=== PATIENT | female | born 1940 | race Caucasian/White ===

== ENCOUNTER 2021-06-23 16:53 | Inpatient (IN) ==
[2021-06-23] MEDS: morphine 2 MG/ML VIAL IV PRN ×2 (17:16→17:50)
--- NOTE | 2021-06-23 17:47 | XRay Report ---
CLINICAL INFORMATION: 03/31/2020 COMPARISON: None. TECHNIQUE: Portable FINDINGS: The heart size, mediastinum and pulmonary vessels are unremarkable. The lung volumes are elevated is mild wall thickening the central bronchi compatible with chronic bronchitis. Minor scattered scarring in the lower lungs appreciated no infiltrates. There are no effusions. The bones and soft tissues are within normal limits. IMPRESSION: Chronic bronchitis. No acute disease Interpreted and Authenticated by: Braulio Mansfield 06/23/21
--- NOTE | 2021-06-23 17:48 | XRay Report ---
CLINICAL INFORMATION: Trauma COMPARISON: None. FINDINGS: Sacroiliac and hip joints show mild degenerative change. Basicervical fracture of the right hip is non-displaced. No angulation.. Soft tissues are unremarkable. IMPRESSION: Nondisplaced basicervical fracture-right hip Interpreted and Authenticated by: Braulio Mansfield 06/23/21
--- NOTE | 2021-06-23 18:03 | Emergency Department Note ---
HPI General Chief complaint: Extremity Injury, Lower Stated complaint: extremity injury Time Seen by Provider: 06/23/21 17:04 Mode of arrival: ambulatory Limitations: no limitations History of Present Illness HPI Narrative: Narrative: Patient is an 81-year-old female who presented with chief complaint of hip pain after a fall. Patient states she was out walking her dog this evening when she excellently got pulled off of balance, landing onto her right hip. She has been unable to get up and walk since then. She did not hit her head or lose consciousness, denies being on blood thinners. Otherwise denies any other complaints such as fever, headache, cough, neck pain, chest pain, shortness of breath, nausea, vomiting, abdominal pain, changes in bowel movements or urinary symptoms, numbness or tingling. Related Data Home Medications Medication Instructions Recorded Confirmed multivitamin PO 06/09/15 05/22/18 omega-3 fatty acids 1,000 mg 1,000 mg PO QDAY 06/09/15 05/22/18 capsule Previous Rx's Medication Instructions Recorded insulin syringe-needle U-100 1 mL #90 each 08/20/15 31 gauge x 12/13" insulin detemir U-100 100 unit/mL 10 unit (0.1 mL) SUB-Q QPM #10 ml 07/17/17 subcutaneous solution (Levemir U-100 Insulin) glipizide 10 mg tablet 10 mg PO BID #180 tab 03/27/18 labetalol 200 mg tablet 200 mg PO BID #180 tab 04/19/18 lisinopril 2.5 mg tablet 2.5 mg PO QDAY #14 tab 05/22/18 metformin 1,000 mg tablet 1,000 mg PO QDAY #90 tab 05/28/18 benazepril 40 mg tablet 40 mg PO QDAY #135 tab 05/31/18 Allergies Allergy/AdvReac Type Severity Reaction Status Date / Time atorvastatin [From Lipitor] AdvReac Other Verified 06/23/21 17:00 clonidine [From Catapres] AdvReac Other Verified 06/23/21 17:00 codeine AdvReac Other Verified 06/23/21 17:00 exenatide [From Byetta] AdvReac Other Verified 06/23/21 17:00 ezetimibe [From Zetia] AdvReac Other Verified 06/23/21 17:00 Review of Systems ROS ROS Narrative: Narrative: All systems ED: reviewed and negative except as stated. PFSH Narrative Patient History Narrative: Narrative: Medical/Surgical/Family History All Active Problems (Updated 06/23/21 @ 18:11 by Jorge Ewing DO) Closed hip fracture (Acute) Encounter for routine laboratory testing (Acute) Encounter for Health Maintenance Examination in Adult (Chronic) Hx of bilateral oophorectomy (Chronic) Hx of bilateral mastectomy (Chronic) History of lumpectomy of right breast (Chronic) Hx of lumbosacral spine surgery (Chronic 04/22/13) Hx of hysterectomy (Chronic) Hx of colonoscopy (Chronic 06/18/14) Hx of breast biopsy (Chronic 02/24/14) Previous back surgery (Chronic 05/06/13) Chronic rhinitis (Chronic) Osteopenia (Chronic) Mixed hyperlipidemia (Chronic) Low back pain (Chronic 06/18/13) Herpes simplex (Chronic 04/01/11) Essential hypertension (Chronic) Gout, unspecified (Chronic) Fatty liver disease, nonalcoholic (Chronic) DM w/o complication type II (Chronic) Depression (Chronic) Degenerative arthritis (Chronic) Confusion (Chronic) History of colonic polyps (Chronic 06/09/14) Breast cancer in situ (Chronic) Back pain (Chronic 04/24/12) Medical History (Updated 06/23/21 @ 18:11 by Jorge Ewing DO) Back pain (04/24/12) 04/24/2012 Low back pain, decreased mobility, and has regained weight. No radicular symptoms. Breast cancer in situ Original biopsy 1993. Right lumpectomy with neg node dissection. Estrogen receptor positive, had radiation therapy, on Tamoxifen X5 yrs. until 1998. Recurrent positive biopsy 07/2005 and elected for surgery 08/2005 bilateral mastectomy. Completed 5 year sequence of Femara in 08/2010. Dr. Gautam follows every 6 months. Chronic rhinitis Takes Claritin on a prn basis; no frequent infections. Confusion Extensive workup with Dr. Desai in 2007. Mild confusion and negative vascular review. Secondary to elevation in BP. Degenerative arthritis Multi-joint. Burstis in shoulder, metatarsalgia in left foot, and bilateral hip pain. Significant improvement with Celebrex. No H/O inflammatory joint issues. Mild discomfort in ROM of hips right more than left. No joint effusion. Extensive evaluation with abdominal CT and Pelvic MRI 12/2010. Depression Past H/O depression. Previously on Paxil in 2008. Doing well off medication. 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 Doing well with current medication. Eye exam stable (Dr. Browne). Negative vascular hx, no significant proteinuria, no hypoglycemia, and foot care excellent. Essential hypertension Home monitor. Generally well controlled by medication. Some mild edema but is stable. Negative cardiac history. Fatty liver disease, nonalcoholic Elevated SGOT; diagonisis steatohepatitis or fatty liver. Uses little to no alcohol; has been stable. Previous screening for hepatitis B, C and hemochromatosis. Gout, unspecified Right foot 2006 and left foot 2008. No H/O kidney stone. Herpes simplex (04/01/11) Diagnosed by Dr. Gautam. Reactivation associated w current emotional stressors. History of colonic polyps (06/09/14) 06/09/04--Dr. Turk--Colonoscopy revealed hyperplastic polyp. Consider rescreen late 2011. Negative family history, no H/O bleeding, and no dyspepsia, dysphagia, or chronic pain. Low back pain (06/18/13) post op x 2: 04/27/13,05/09/13 post op x 2: 04/27/13,05/09/13 Mixed hyperlipidemia Multiple medication intolerance; currently diet-treated. Osteopenia H/O. 08/2010 bone density T-score spine +0.5, hip -0.4; normal. Vitamin D was stable 08/2009 at 38.2. Surgical History (Updated 09/17/20 @ 10:56 by [employer] [place]) History of lumpectomy of right breast with a negative node dissection Hx of bilateral mastectomy 08/2005 - Completed 5-year sequence of Femara 08/2010. Followed q6 month through Dr. Gautam. Extensive re-evaluation 12/2010. Hx of bilateral oophorectomy 2006 - prophylactic bilateral oophorectomy 07/2006 due to breast history. Hx of breast biopsy (02/24/14) several previous breast biopsies Hx of colonoscopy (06/18/14) 06/18/14-TA Normal in 1992. 06/09/04 Colonoscopy--Dr. Turk--Hyperplastic polyp in 2003. Consider rescreen late 2011. Negative family history, no H/O bleeding, and no dyspepsia, dysphagia, or chronic pain. Hx of hysterectomy 1973 - in 2 sequential surgeries. Hx of lumbosacral spine surgery (04/22/13) anterior fusion L2-L3, L3-L4, L4-L5 with application of prosthetic device to interbody space at above levels. Previous back surgery (05/06/13) Revision segmental intrumentation l2 to the sacrum, removal of pedicle srew on the left and revision instrumentation to the iliac crests bilaterally by Dr. Gannon. Family History Mother Malignant neoplasm of breast Malignant neoplasm of lung Sister Malignant neoplasm of breast Unknown Hypertension Brother Carcinoma of pancreas Social History Smoking Status: Never smoker Alcohol Intake Frequency: holiday/special occasion only Substance Use: does not use Exam Narrative Narrative: Narrative: Patient is laying in bed, talking normally and appropriately. She does not appear to be in acute discomfort or distress, except for when she has to move her right lower extremity. General Limitations: no limitations Head Head: Present atraumatic and normocephalic Eye Eye: Present normal appearance, PERRL and EOMI; Absent scleral icterus or conjunctival injection ENT ENT: Present normal oropharynx and mucous membranes moist Neck Neck: Present full ROM and trachea midline; Absent tenderness or lymphadenopathy Chest Chest: Present symmetric chest wall rise Respiratory Respiratory: Present normal lung sounds bilaterally; Absent respiratory distress, rales/crackles, wheezes, stridor or accessory muscle use Cardiovascular Cardiovascular: Present regular rate and normal rhythm; Absent systolic murmur or diastolic murmur Adbominal Abdominal: Present soft; Absent tenderness, guarding, rebound, rigidity or mass Extremities Extremities: Absent pedal edema, pretibial edema or calf tenderness Expanded Lower Extremity Hip/Pelvis: Present tenderness, external rotation and pelvis stable; Absent full ROM, dislocation, erythema, internal rotation or shortening Back Back: Absent CVA tenderness (R), CVA tenderness (L) or spinous process tenderness Neurological Neurological: Present alert and oriented X3 Psychiatric Psychiatric: Present normal affect and normal mood Skin Skin: Present warm (WNL) and dry Course Vital Signs Vital signs: Vital Signs Temperature 97.9 F 06/23/21 16:54 Pulse Rate 72 06/23/21 16:54 Respiratory Rate 16 06/23/21 16:54 Blood Pressure 157/121 06/23/21 16:54 Pulse Oximetry (%) 100 06/23/21 16:54 Temperature 97.9 F 06/23/21 16:54 Pulse Rate 71 06/23/21 17:32 Respiratory Rate 16 06/23/21 17:28 Blood Pressure 191/72 06/23/21 17:32 Pulse Oximetry (%) 100 06/23/21 17:32 MDM MDM Narrative Medical decision making narrative: Narrative: Patient is an 81-year-old female presented with history and physical exam possible hip fracture. X-ray did confirm an intertrochanteric hip fracture with no significant displacement. No other significant traumatic injury to her head or neck concerning for TBI. Vital signs stable, pain under control. Discussed the case with Dr. Ramesh, who stated that he would evaluate the patient and potentially try to fix her tonight versus early tomorrow morning. I discussed case the hospitalist who agrees the plan of admission. Patient is agreeable to the plan at this time has no further concerns or questions Procedures Other Procedure: EKG shows normal sinus rhythm with rate of approximately 65. No ST elevation or depression concerning for ischemia. No other significant arrhythmia noted. Discharge Plan Patient/Caregiver Discharge Instructions Pt seen by [facility]/PA only: No Clinical Impression: Closed hip fracture Patient Disposition: Xfer As Inpt ([facility]) Follow up with: Jesus Foss MD [Primary Care Provider] - Prescriptions: No Action (DME) insulin syringe-needle U-100 1 mL 31 x 5/16" syringe See Dose Instructions .ROUTE .MEDSUPPLY Qty: 90 0RF Dose Instruction: As directed Rx Instructions: As directed once daily glipizide 10 mg tablet 10 mg PO BID Qty: 180 1RF labetalol 200 mg tablet 200 mg PO BID Qty: 180 1RF metformin 1,000 mg tablet 1,000 mg PO QDAY Qty: 90 1RF benazepril 40 mg tablet 40 mg PO QDAY Qty: 135 0RF Rx Instructions: Take one and one half tablets by mouth once daily omega-3 fatty acids 1,000 mg capsule 1,000 mg PO QDAY 0RF multivitamin PO 0RF lisinopril 2.5 mg tablet 2.5 mg PO QDAY Qty: 14 0RF insulin detemir U-100 [Levemir U-100 Insulin] 100 unit/mL solution 10 unit SUB-Q QPM Qty: 10 5RF Rx Instructions: administer with evening meal
[2021-06-23 18:11] LABS: POC Blood Urea Nitrogen 14 mg/dL (6-20); POC CO2 25 mmol/L (22-30); POC Calcium, Ionized 1.17 mmEq/L (1.16-1.32); POC Chloride 100 mEq/L (96-108); POC Creatinine 0.8 mg/dL (0.6-1.2); POC Glucose, Random 143 mg/dL (70-105); POC Hematocrit 45 % (36-48); POC Sodium 140 mEq/L (133-145)
[2021-06-23] MEDS ORDERED: TRANEXAMIC ACID 1,000 MG/10 ML VIAL IV ONE (18:18)
[2021-06-23] MEDS ORDERED: ceFAZolin 2 GM in DEXTROSE 5% IN WATER 50 ML IV SCH (18:30)
[2021-06-23 18:55] LABS: Basophils # (Auto) 0.05 K/mcL (0.00-0.30); Basophils % (Auto) 0.5 % (0.0-2.0); Eosinophils # (Auto) 0.07 K/mcL (0.00-0.70); Eosinophils % (Auto) 0.7 % (0.0-7.0); Hematocrit 43.1 % (34.1-44.9); Hemoglobin 14.9 g/dL (11.2-15.7); Lymphocytes # (Auto) 2.51 K/mcL (1.50-4.80); Lymphocytes % (Auto) 24.6 % (15.5-49.0); Mean Cell Volume 91.5 fL (80.0-100.0); Mean Corpuscular HGB Conc 34.6 g/dL (31.0-36.0); Mean Platelet Volume 11.2 fL (7.4-10.4); Monocytes # (Auto) 0.71 K/mcL (0.10-0.90); Neutrophils % (Auto) 67.2 % (38.0-78.0); Platelet Count 239 K/mcL (140-440); RBC 4.71 M/mcL (3.59-5.38); Red Cell Distribution Width 12.4 % (11.5-14.5); WBC 10.2 K/mcL (4.5-11.0)
[2021-06-23] MEDS ORDERED: ceFAZolin 1 GM VIAL ONE (19:07)
--- NOTE | 2021-06-23 19:18 | Consultation ---
DATE OF CONSULTATION: 06/23/2021 REASON FOR CONSULTATION: Right hip fracture. CONSULTING PROVIDER: Dr. Patel, ER provider, [facility]. HISTORY OF PRESENT ILLNESS: The patient is an 79-year-old female who this evening was planning to walk her dog when her dog caused her to fall onto her right hip. She had immediate pain, inability to ambulate, was brought to the Emergency Department for further evaluation and treatment. She does not complain of any other pain. On presentation, she denies any loss of consciousness or hitting her head. She denies any numbness, tingling to the extremity itself. PAST MEDICAL HISTORY: Significant for insulin-dependent diabetes; hypertension; controlled on 3 blood pressure medications; and hyperlipidemia. ALLERGIES: ATORVASTATIN, KLONOPIN, CODEINE, EXENATIDE, EZETIMIBE OR ZETIA. MEDICATIONS: Multivitamin, omega 3 fatty acids, insulin, glipizide, labetalol, lisinopril, metformin, benazepril. SOCIAL HISTORY: She resides by herself here locally with family in [facility]. Denies tobacco use. SURGICAL HISTORY: She has had multiple surgeries in the past includes mastectomy for history of breast cancer. She has had a spinal fusion. REVIEW OF SYSTEMS: A 10-point review of systems otherwise negative. PHYSICAL EXAMINATION: GENERAL: The patient is alert, oriented, interactive, appropriate. VITAL SIGNS: She is afebrile with temperature of 97.9, heart rate in the 70s, blood pressure over 150s/121 with more recently 190s/70s, saturating 99%-100% on room air. EXTREMITIES: Examination of bilateral upper extremities reveals is atraumatic. She has full active range of motion. No obvious deformity. Hands are warm and well perfused and sensation to be intact. Left lower extremity has no pain with log roll of her hip. No obvious deformity, no knee joint effusion. No deformity noted. She has full active range of motion without difficulty. The right lower extremity range of motion for about the hip given known fracture, she has no tenderness about the knee itself. No joint effusion. No obvious deformity noted. Skin is intact throughout. Her foot is warm and well perfused. Sensation intact to light touch. IMAGING: She has plain radiographs demonstrating intertrochanteric or basicervical femoral neck fracture on the right side. LABS: She has a chemistry with a glucose of 143. Hematocrit of 45, creatinine 0.8. Sodium 140 and potassium 9 with a CBC that is pending. COVID testing is pending. ASSESSMENT AND PLAN: This is an 81-year-old diabetic female with hypertension, history of breast cancer with a right basicervical femur fracture. I discussed this with her at length. I discussed treatment options. I do recommend operative treatment as this will improve her overall function as well as improve her pain control and restore her mobility much faster. I discussed about the risks and benefits as well as the surgery itself. I discussed postoperative expectations and recovery process. They do wish to proceed. Plan will be for operative fixation of right hip fracture with an cephalomedullary implant. DLW:jey Job ID: [id number] Doc ID: [id number] Miranda Ramesh MD MTDD
[2021-06-23] MEDS ORDERED: BENZOCAINE/MENTHOL 1 LOZENGE PO PRN (19:31)
[2021-06-23] MEDS ORDERED: ONDANSETRON 4 MG/2 ML VIAL IV PRN ×2 (19:31→21:51)
[2021-06-23] MEDS ORDERED: LACTATED RINGERS 250 ML IV PRN (19:31)
[2021-06-23] MEDS ORDERED: NALOXONE HCL 0.4 MG/ML VIAL IV PRN (19:31)
[2021-06-23] MEDS ORDERED: METHOCARBAMOL 1,000 MG/10 ML VIAL IV PRN (19:31)
[2021-06-23] MEDS ORDERED: LABETALOL 5 MG/ML ML IV PRN (19:31)
[2021-06-23] MEDS ORDERED: fentaNYL 100 MCG/2 ML VIAL IV PRN (19:31)
[2021-06-23] MEDS ORDERED: MEPERIDINE 25 MG/ML VIAL IV PRN (19:31)
[2021-06-23] MEDS ORDERED: ACETAMINOPHEN 1,000 MG/100 ML BAG IV ONE (19:31)
[2021-06-23] MEDS ORDERED: FLUMAZENIL 0.1 MG/ML ML IV PRN (19:31)
[2021-06-23] MEDS ORDERED: IPRATROPIUM/ALBUTEROL 3 ML AMPUL.NEB NEB PRN (19:31)
[2021-06-23] MEDS ORDERED: METOPROLOL TARTRATE 5 MG/5 ML VIAL IV PRN ×2 (19:31→21:51)
[2021-06-23] MEDS ORDERED: LIDOCAINE HCL/PF 100 MG/5 ML SYRINGE IV ONE (19:40)
[2021-06-23] MEDS ORDERED: PHENYLephrine 1 MG/10 ML SYRINGE (ANEST) ONE (19:40)
[2021-06-23] MEDS ORDERED: PROPOFOL 200 MG/20 ML VIAL IV ONE (19:40)
[2021-06-23] MEDS ORDERED: GLYCOPYRROLATE 0.2 MG/ML VIAL IV ONE (19:40)
[2021-06-23] MEDS ORDERED: ONDANSETRON 4 MG/2 ML VIAL ONE (19:40)
[2021-06-23] MEDS ORDERED: KETAMINE 50 MG/ML Syringe (ANEST) IV ONE (19:40)
[2021-06-23] MEDS ORDERED: ePHEDrine 50 MG/5 ML SYRINGE (ANEST) IV ONE (19:40)
[2021-06-23] MEDS ORDERED: TRANEXAMIC ACID 1,000 MG/10 ML VIAL ONE (19:40)
[2021-06-23] MEDS ORDERED: MAGNESIUM SULFATE 2 GM/50 ML BAG IV ONE (19:40)
[2021-06-23] MEDS ORDERED: DEXAMETHASONE 10 MG/ML VIAL ONE (19:40)
[2021-06-23] MEDS ORDERED: fentaNYL 250 MCG/5 ML VIAL IV ONE (19:40)
[2021-06-23] MEDS ORDERED: LACTATED RINGERS 1,000 ML IV SCH (19:45)
--- NOTE | 2021-06-23 20:53 | Brief Operative Note ---
Brief Operative Note Date of procedure: 06/23/21 Pre-op diagnosis: right basicervical femoral neck fracture Post-op diagnosis: same Procedure: operative fixation with intra medudullary device Grafts/Implants: Yes Anesthesia: GETA Findings: femoral neck fracture Complications: none Surgeon: Miranda Ramesh Estimated blood loss (cc): 150 Tourniquet Time (Minutes): 0 Specimens Removed/Pathology: none sent Condition: stable Disposition: PACU
[2021-06-23] MEDS ORDERED: oxyCODONE/APAP 5/325MG TABLET PO PRN (21:05)
[2021-06-23] MEDS ORDERED: METHOCARBAMOL 500 MG TABLET PO PRN (21:17)
[2021-06-23] MEDS ORDERED: ONDANSETRON 4 MG ODT TABLET SL PRN (21:51)
[2021-06-23] MEDS ORDERED: MAGNESIUM SULFATE 2 GM/50 ML BAG IV PRN (21:51)
[2021-06-23] MEDS ORDERED: POLYETHYLENE GLYCOL 3350 17 GM PACKET PO PRN (21:51)
[2021-06-23] MEDS ORDERED: 0.9 % SODIUM CHLORIDE 1,000 ML IV SCH (21:51)
[2021-06-23] MEDS ORDERED: DEXTROSE 31 GM ORAL.SUSP PO PRN (21:51)
[2021-06-23] MEDS ORDERED: ACETAMINOPHEN 325 MG TABLET PO PRN (21:51)
[2021-06-23] MEDS ORDERED: POTASSIUM CHLORIDE 40 MEQ in DEXTROSE 5% IN WATER 500 ML IV PRN (21:51)
[2021-06-23] MEDS ORDERED: DEXTROSE 50% 50 ML VIAL IV PRN (21:51)
[2021-06-23] MEDS ORDERED: hydrALAZINE 20 MG/ML VIAL IV PRN (21:51)
[2021-06-23] MEDS ORDERED: POTASSIUM CHLORIDE 20 MEQ PACKET PO PRN (21:51)
[2021-06-23] MEDS ORDERED: HYDROmorphone 0.5 MG/0.5 ML SYRINGE IV PRN (21:51)
[2021-06-23] MEDS ORDERED: MELATONIN 3 MG TABLET PO PRN (21:51)
[2021-06-23] MEDS ORDERED: ACETAMINOPHEN 650 MG/65 ML BAG IV PRN (21:51)
--- NOTE | 2021-06-23 21:55 | Internal Med History&Physical ---
HPI History of Present Illness Patient information: Note initiated : 06/23/21 at 9:51 pm Service Date, if different from initiated Date: [] Patient: Mary Biswas a 81 y/o F admitted on 06/23/21 for extremity injury. Chief Complaint: [] History of present illness: Ms Biswas is a 81 year old F with a history of DM type II/hypertension who fell this evening while walking her dog when she got accidentally pulled and landed on the ground. She immediately felt pain. She was brought into the ER for evaluation. Initial work-up was consistent with right hip fracture. Dr. Ramesh was consulted and patient was taken to surgery from the ER. Postoperatively hospitalist service was consulted for management while patient will undergo postoperative care as per Ortho recommendations. of medical issues including hypertension/diabetes I was a evaluate patient in the PACU. Patient to is immediately postop under effect of sedation/anesthesia. Intraoperatively patient maintained MAP She was able to answer some of the question. she does not appear to be distressed. She maintained good map intraoperatively. She is currently on room air. Family members are present. Most of the history was obtained from review of medical record/family members. No precipitating events including lightheadedness dizziness. Patient has a good functional baseline lives a However daughter wants her to return home and stay with her after discharge from hospital. She denies recent hospitalization, pneumonia, chronic renal disease, recent CVA or MIs. Review systems a 10 point review system was performed and is negative except for ones discussed above PFSH PFSH All Active Problems (Updated 06/24/21 @ 08:03 by Miranda Ramesh MD) Closed hip fracture (Acute) Encounter for routine laboratory testing (Acute) Encounter for Health Maintenance Examination in Adult (Chronic) Hx of bilateral oophorectomy (Chronic) Hx of bilateral mastectomy (Chronic) History of lumpectomy of right breast (Chronic) Hx of lumbosacral spine surgery (Chronic 04/22/13) Hx of hysterectomy (Chronic) Hx of colonoscopy (Chronic 06/18/14) Hx of breast biopsy (Chronic 02/24/14) Previous back surgery (Chronic 05/06/13) Chronic rhinitis (Chronic) Osteopenia (Chronic) Mixed hyperlipidemia (Chronic) Low back pain (Chronic 06/18/13) Herpes simplex (Chronic 04/01/11) Essential hypertension (Chronic) Gout, unspecified (Chronic) Fatty liver disease, nonalcoholic (Chronic) DM w/o complication type II (Chronic) Depression (Chronic) Degenerative arthritis (Chronic) Confusion (Chronic) History of colonic polyps (Chronic 06/09/14) Breast cancer in situ (Chronic) Back pain (Chronic 04/24/12) Medical History (Updated 06/24/21 @ 08:03 by Miranda Ramesh MD) Back pain (04/24/12) 04/24/2012 Low back pain, decreased mobility, and has regained weight. No radicular symptoms. Breast cancer in situ Original biopsy 1993. Right lumpectomy with neg node dissection. Estrogen receptor positive, had radiation therapy, on Tamoxifen X5 yrs. until 1998. Recurrent positive biopsy 07/2005 and elected for surgery 08/2005 bilateral mastectomy. Completed 5 year sequence of Femara in 08/2010. Dr. Gautam follows every 6 months. Chronic rhinitis Takes Claritin on a prn basis; no frequent infections. Confusion Extensive workup with Dr. Desai in 2007. Mild confusion and negative vascular review. Secondary to elevation in BP. Degenerative arthritis Multi-joint. Burstis in shoulder, metatarsalgia in left foot, and bilateral hip pain. Significant improvement with Celebrex. No H/O inflammatory joint issues. Mild discomfort in ROM of hips right more than left. No joint effusion. Extensive evaluation with abdominal CT and Pelvic MRI 12/2010. Depression Past H/O depression. Previously on Paxil in 2008. Doing well off medication. 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 Doing well with current medication. Eye exam stable (Dr. Browne). Negative vascular hx, no significant proteinuria, no hypoglycemia, and foot care excellent. Essential hypertension Home monitor. Generally well controlled by medication. Some mild edema but is stable. Negative cardiac history. Fatty liver disease, nonalcoholic Elevated SGOT; diagonisis steatohepatitis or fatty liver. Uses little to no alcohol; has been stable. Previous screening for hepatitis B, C and hemochromatosis. Gout, unspecified Right foot 2006 and left foot 2008. No H/O kidney stone. Herpes simplex (04/01/11) Diagnosed by Dr. Gautam. Reactivation associated w current emotional stressors. History of colonic polyps (06/09/14) 06/09/04--Dr. Turk--Colonoscopy revealed hyperplastic polyp. Consider resc reen late 2011. Negative family history, no H/O bleeding, and no dyspepsia, dysphagia, or chronic pain. Low back pain (06/18/13) post op x 2: 04/27/13,05/09/13 post op x 2: 04/27/13,05/09/13 Mixed hyperlipidemia Multiple medication intolerance; currently diet-treated. Osteopenia H/O. 08/2010 bone density T-score spine +0.5, hip -0.4; normal. Vitamin D was stable 08/2009 at 38.2. Surgical History (Updated 09/17/20 @ 10:56 by [employer] [facility]) History of lumpectomy of right breast with a negative node dissection Hx of bilateral mastectomy 08/2005 - Completed 5-year sequence of Femara 08/2010. Followed q6 month through Dr. Gautam. Extensive re-evaluation 12/2010. Hx of bilateral oophorectomy 2006 - prophylactic bilateral oophorectomy 07/2006 due to breast history. Hx of breast biopsy (02/24/14) several previous breast biopsies Hx of colonoscopy (06/18/14) 06/18/14-TA Normal in 1992. 06/09/04 Colonoscopy--Dr. Turk--Hyperplastic polyp in 2003. Consider rescreen late 2011. Negative family history, no H/O bleeding, and no dyspepsia, dysphagia, or chronic pain. Hx of hysterectomy 1972 - in 2 sequential surgeries. Hx of lumbosacral spine surgery (04/22/13) anterior fusion L2-L3, L3-L4, L4-L5 with application of prosthetic device to interbody space at above levels. Previous back surgery (05/06/13) Revision segmental intrumentation l2 to the sacrum, removal of pedicle srew on the left and revision instrumentation to the iliac crests bilaterally by Dr. Gannon. Family History Mother Malignant neoplasm of breast Malignant neoplasm of lung Sister Malignant neoplasm of breast Unknown Hypertension Brother Carcinoma of pancreas Social History (Updated 05/22/18 @ 13:26 by Claudia Del Valle MD) household members: spouse housing: house lives independently: Yes marital status: occupational status: retired occupation: [employer] alcohol intake frequency: holiday/special occasion only substance use type: does not use MEDS/ALLERGIES Home Medications and Allergies Home Medications Medication Instructions Recorded Confirmed Type multivitamin PO 06/09/15 05/22/18 History omega-3 fatty acids 1,000 mg 1,000 mg PO QDAY 06/09/15 05/22/18 History capsule insulin syringe-needle U-100 1 mL #90 each 08/20/15 05/22/18 Rx 31 gauge x /16" insulin detemir U-100 100 unit/mL 10 unit (0.1 mL) SUB-Q QPM #10 ml 07/17/17 05/22/18 Rx subcutaneous solution (Levemir U-100 Insulin) glipizide 10 mg tablet 10 mg PO BID #180 tab 03/27/18 05/22/18 Rx labetalol 200 mg tablet 200 mg PO BID #180 tab 04/19/18 05/22/18 Rx lisinopril 2.5 mg tablet 2.5 mg PO QDAY #14 tab 05/22/18 05/22/18 Rx metformin 1,000 mg tablet 1,000 mg PO QDAY #90 tab 05/28/18 Rx benazepril 40 mg tablet 40 mg PO QDAY #135 tab 05/31/18 Rx acetaminophen 500 mg tablet 1,000 mg PO Q8 #90 tab 06/24/21 Rx apixaban 5 mg tablet (Eliquis) 2.5 mg PO BID #66 tab 06/24/21 Rx docusate sodium 100 mg capsule 100 mg PO BID #60 cap 06/24/21 Rx methocarbamol 500 mg tablet 500 mg PO Q6HP PRN #20 tab 06/24/21 Rx oxycodone 5 mg tablet 5 - 10 mg PO Q4-6HP PRN #50 tab 06/24/21 Rx Allergies Allergy/AdvReac Type Severity Reaction Status Date / Time atorvastatin [From Lipitor] AdvReac Other Verified 06/23/21 17:00 clonidine [From Catapres] AdvReac Other Verified 06/23/21 17:00 codeine AdvReac Other Verified 06/23/21 17:00 exenatide [From Byetta] AdvReac Other Verified 06/23/21 17:00 ezetimibe [From Zetia] AdvReac Other Verified 06/23/21 17:00 EXAM Constitutional Vitals: Temp Pulse Resp BP Pulse Ox 97.9 F 96 H 30 H 193/80 100 06/23/21 16:54 06/23/21 21:39 06/23/21 21:39 06/23/21 21:35 06/23/21 21:39 Sedated resting comfortably Head normocephalic Oral cavity moist No ear or nose discharge Eye no subconjunctival pallor, movement symmetrical S1-S2 regular ESM grade 1 Nonlabored breathing Nondistended nontender abdomen Lower extremity postoperative dressing right hip, no cyanosis clubbing or joint swelling Skin no suspicious lesion Psych under effect of anesthesia no agitation Neuro Limited neuro exam DATA Data Completed and Pending Labs: Labs from last 24 hours 06/23/21 06/23/21 18:02 18:02 WBC 10.2 RBC 4.71 Hgb 14.9 Hct 43.1 POC Hct 45 MCV 91.5 MCH 31.6 MCHC 34.6 RDW 12.4 Plt Count 239 MPV 11.2 H Neut % (Auto) 67.2 Lymph % (Auto) 24.6 [place] % (Auto) 7.0 Eos % (Auto) 0.7 Baso % (Auto) 0.5 Lymph # (Auto) 2.51 [place] # (Auto) 0.71 Eos # (Auto) 0.07 Baso # (Auto) 0.05 Absolute Neutrophils 6.85 POC Sodium 140 POC Potassium 3.0 L POC Chloride 100 POC Total CO2 25 POC BUN 14 POC Creatinine 0.8 POC Glucose 143 H POC WB Ioniz Calcium 1.17 A/P Narrative A/P Narrative: * Right hip fractur status post operative intervention. Case discussed with orthopedics. Patient tolerated surgery well. * pain management continue IV opioids/acetaminophen * Poorly controlled hypertension continue labetalol/ARB/as needed hydralazine * DM type II continue basal prandial insulin * DVT prophylaxis started on apixaban per orthopedics plan * inpatient admission * postoperative care as per orthopedics * pain management * pre-existing medical condition management home home medications * PT OT/nutrition support * discharge planning per case management Time Spent With Patient Time: Total time spent is greater than 50% in coordination of care (as documented) at patient's floor/unit and/or counseling patient:
[2021-06-23] MEDS ORDERED: 0.9 % SODIUM CHLORIDE 10 ML SYRINGE IV SCH (22:00)
[2021-06-23] MEDS: LACTATED RINGERS 1,000 ML IV SCH (22:14)
[2021-06-23] MEDS: INSULIN LISPRO 1 UNIT/0.01 ML UNIT SQ SCH (22:58)
[2021-06-23] MEDS: SENNOSIDES/DOCUSATE SODIUM 1 TAB TABLET PO SCH (22:59)
[2021-06-23] MEDS: DOCUSATE SODIUM 100 MG CAPSULE PO SCH (22:59)
[2021-06-23] MEDS: 0.9 % SODIUM CHLORIDE 10 ML SYRINGE IV SCH (23:02)
--- NOTE | 2021-06-24 03:03 | XRay Report ---
CLINICAL INFORMATION: Follow-up right hip fracture COMPARISON: Preoperative films 06/23/2021. FINDINGS: Sacroiliac and hip joints are normal in width and alignment without arthritic change. Right basicervical fracture is reduced anatomic alignment transfixed by gamma nail. Soft tissue swelling seen as expected IMPRESSION: ORIF right hip basicervical fracture Interpreted and Authenticated by: Braulio Mansfield 06/24/21
--- NOTE | 2021-06-24 03:09 | XRay Report ---
CLINICAL INFORMATION: Basicervical fracture right hip COMPARISON: Preoperative films 06/23/2021. FINDINGS: Digital images from the OR show reduction of the basicervical fracture to anatomic alignment. Final film shows gamma nail transfixing the fracture. Total fluoroscopy time 0.8 minutes IMPRESSION: ORIF right hip basicervical fracture anatomic alignment. Total fluoroscopy time 0.8 minutes Interpreted and Authenticated by: Braulio Mansfield 06/24/21
[2021-06-24] MEDS: 0.9 % SODIUM CHLORIDE 10 ML SYRINGE IV SCH ×3 (05:13→20:48)
[2021-06-24] MEDS: ceFAZolin 1 GM VIAL IV SCH ×2 (05:13→11:28)
[2021-06-24 06:56] LABS: Basophils # (Auto) 0.01 K/mcL (0.00-0.30); Basophils % (Auto) 0.1 % (0.0-2.0); Eosinophils # (Auto) 0 K/mcL (0.00-0.70); Eosinophils % (Auto) 0 % (0.0-7.0); Hematocrit 39.9 % (34.1-44.9); Hemoglobin 13.8 g/dL (11.2-15.7); Lymphocytes # (Auto) 0.67 K/mcL (1.50-4.80); Lymphocytes % (Auto) 6.6 % (15.5-49.0); Mean Cell Volume 91.5 fL (80.0-100.0); Mean Corpuscular HGB Conc 34.6 g/dL (31.0-36.0); Mean Platelet Volume 11.2 fL (7.4-10.4); Monocytes # (Auto) 0.21 K/mcL (0.10-0.90); Monocytes % (Auto) 2.1 % (1.0-12.0); Neutrophils % (Auto) 91.2 % (38.0-78.0); Platelet Count 219 K/mcL (140-440); RBC 4.36 M/mcL (3.59-5.38); Red Cell Distribution Width 12.5 % (11.5-14.5); WBC 10.1 K/mcL (4.5-11.0)
[2021-06-24] MEDS: INSULIN LISPRO 1 UNIT/0.01 ML UNIT SQ SCH ×4 (07:28→20:46)
[2021-06-24 07:37] LABS: ALT/SGPT 13 U/L (<40); AST/SGOT 43 U/L (<32); Albumin/Globulin Ratio 1.6 (1.0-2.3); Alkaline Phosphatase 69 U/L (39-117); Bilirubin,Direct < 0.2 mg/dL (0-0.3); Bilirubin,Total 0.7 mg/dL (0.1-1.0); Blood Urea Nitrogen 12 mg/dL (8-23); Calcium 9.3 mg/dL (8.6-10.4); Carbon Dioxide 24 mmol/L (22-30); Chloride 98 mmol/L (96-108); Globulin 2.5 gm/dL (2.2-3.7); Glomerular Filtration Rate 52; Glucose 217 mg/dL (70-105); Lactate Dehydrogenase 251 U/L (135-225); Phosphorous 4.2 mg/dL (2.5-4.5); Triglycerides 84 mg/dL (<150); Uric Acid 5.1 mg/dL (2.5-8.0)
[2021-06-24] MEDS ORDERED: oxyCODONE HCL 5 MG TABLET PO PRN (07:47)
--- NOTE | 2021-06-24 08:06 | Orthopedic Progress Note ---
SUBJECTIVE Subjective Patient information: Note initiated : 06/24/21 at 8:02 am Service Date, if different from initiated Date: [] Patient: Mary Biswas 81 y/o F admitted on 06/23/21 for extremity injury. Chief Complaint: [Doing well this AM. Pain controlled. Straight cath overnight. No chest pain, shortness breath.] Constitutional Vitals: Vital Signs Temp Pulse Resp BP Pulse Ox 97.8 F 75 16 154/70 100 06/24/21 07:00 06/24/21 07:00 06/24/21 07:00 06/24/21 07:00 06/24/21 07:00 Period Temp Pulse Resp BP Sys/Massey Pulse Ox Last 24 Hr 97.0 F-97.9 F 60-99 9-30 145-196/61-121 94-100 Intake and Output 06/23/21 06/24/21 06/24/21 21:59 05:59 13:59 Intake Total 150 Output Total 0 1250 Balance 150 -1250 Weight 165 lb 147 lb 12.8 oz Intake & Output: Intake & Output 06/23/21 06/24/21 06/24/21 21:59 05:59 13:59 Intake Total 150 Output Total 0 1250 Balance 150 -1250 Weight 165 lb 147 lb 12.8 oz Intake: IV 150 Ancef 2 gm In Dextrose 5% in 50 Water 50 ml @ 100 mls/hr IV PREOP SMITHA Rx#:[id number] Output: Urine Catheter Amount 1250 Void Amount 0 0 Other: Urine Appearance Clear Clear Straight Clear Clear Urine Color Bright Yellow Straw Straight Bright Yellow Straw Urine Odor Normal # Bowel Movements 0 Additional findings Additional findings: General: alert and oriented, appropriate Right hip: dressing clean dry intact. foot warm well perfused. OBJ DATA Labs CBC & Chem 7: 06/24/21 05:29 06/24/21 05:29 Labs: Abnormal Lab Results 06/24/21 06/24/21 06/23/21 05:29 05:29 18:02 MPV 11.2 H Neut % (Auto) 91.2 H Lymph % (Auto) 6.6 L Lymph # (Auto) 0.67 L Absolute Neutrophils 9.20 H POC Potassium 3.0 L Anion Gap 18.0 H Glucose 217 H POC Glucose 143 H AST 43 H Lactate Dehydrogenase 251 H 06/23/21 18:02 MPV 11.2 H Neut % (Auto) Lymph % (Auto) Lymph # (Auto) Absolute Neutrophils POC Potassium Anion Gap Glucose POC Glucose AST Lactate Dehydrogenase Meds: Medications Acetaminophen (Acetaminophen 500 Mg Tablet) 1,000 mg PO Q8 [facility]; Protocol Apixaban (Apixaban 5 Mg Tablet) 2.5 mg PO BID [facility] Cefazolin Sodium (Cefazolin 1 Gm Vial) 2 gm IV Q8H [facility] Stop: 06/24/21 11:01 Last Admin: 06/24/21 05:13 Dose: 2 gm Documented by: Dextrose (Dextrose 50% 50 Ml Vial) 0 ml IV UD PRN PRN Reason: Hypoglycemia Diagnostic Test (Pha) (Accu-Chek 1 Each Strip) 1 each FS [facility] Last Admin: 06/24/21 07:28 Dose: 1 each Documented by: Docusate Sodium (Docusate Sodium 100 Mg Capsule) 100 mg PO BID [facility] Last Admin: 06/23/21 22:59 Dose: Not Given Documented by: Glucose (Dextrose 31 Gm Oral.Susp) 15 gm PO PRN PRN PRN Reason: Hypoglycemia Hydralazine HCl (Hydralazine 20 Mg/Ml Vial) 10 mg IV Q4-6HP PRN PRN Reason: Hypertension Lactated Ringer's (Lactated Ringers) 1,000 mls @ 75 mls/hr IV .[id number] [facility] Last Admin: 06/23/21 22:14 Dose: 75 mls/hr Documented by: Potassium Chloride 40 meq/ (Dextrose) 520 mls @ 130 mls/hr IV UD PRN PRN Reason: K+ = or < 3.5 Magnesium Sulfate (Magnesium Sulfate) 2 gm in 50 mls @ 50 mls/hr IV UD PRN PRN Reason: MG = or < 1.7 Sodium Chloride (Sodium Chloride 0.9%) 1,000 mls @ 50 mls/hr IV .Q20H [facility] Stop: 06/26/21 09:50 Last Admin: 06/23/21 23:01 Dose: Not Given Documented by: Insulin Human Lispro (Insulin Lispro 1 Unit/0.01 Ml Unit) 0 unit SQ [facility]; Protocol Last Admin: 06/24/21 07:28 Dose: 2 units Documented by: Iron Carb/Multivit/Drink Mixer/Folic Acid (Multivit,Ther Iron,Ca,Fa & Min 1 Tablet) 1 tab PO DAILY [facility] Labetalol HCl (Labetalol 100 Mg Tablet) 200 mg PO BID SMITHA Lisinopril (Lisinopril 20 Mg Tablet) 20 mg PO HS [facility] Melatonin (Melatonin 3 Mg Tablet) 3 mg PO HSP PRN PRN Reason: Insomnia Methocarbamol (Methocarbamol 500 Mg Tablet) 500 mg PO Q6HP PRN PRN Reason: Muscle Spasm Metoprolol Tartrate (Metoprolol Tartrate 5 Mg/5 Ml Vial) 5 mg IV Q5M PRN PRN Reason: Heart Rate > 140 bpm Ondansetron HCl (Ondansetron 4 Mg Odt Tablet) 4 mg SL Q4-6HP PRN; Protocol PRN Reason: Nausea And Vomiting Ondansetron HCl (Ondansetron 4 Mg/2 Ml Vial) 4 mg IV Q4-6HP PRN; Protocol PRN Reason: Nausea And Vomiting Oxycodone HCl (Oxycodone Hcl 5 Mg Tablet) 5 - 10 mg PO Q4-6HP PRN; Protocol PRN Reason: Per Pain Protocol Polyethylene Glycol (Polyethylene Glycol 3350 17 Gm Packet) 17 gm PO DAILYP PRN PRN Reason: Constipation Potassium Chloride (Potassium Chloride 20 Meq Packet) 40 meq PO DAILYP PRN PRN Reason: K+ < 3.5 Senna/Docusate Sodium (Sennosides/Docusate Sodium 1 Tab Tablet) 1 tab PO HS [facility] Last Admin: 06/23/21 22:59 Dose: Not Given Documented by: Sitagliptin Phosphate (Sitagliptin 100 Mg Tablet) 100 mg PO DAILY [facility] Sodium Chloride (0.9 % Sodium Chloride 10 Ml Syringe) 10 ml IV Q8 [facility] Last Admin: 06/24/21 05:13 Dose: Not Given Documented by: A/P Assessment and plan (1) Closed hip fracture: Assessment and plan: POD 1 s/p operative fixation of right hip fracture -- weight bearing as tolerated. PT/OT this AM -- no range of motion restritions -- oral pain meds -- diabetic diet -- Prophy: IS, foot pumps, eliquis starting today, mobilization -- Dispo: pending on how she does with therapy but does want to go home. Will order walker, toilet seat riser, therapy consult, will need f/u with ortho in 10-14 days, keep dressing in place until follow up- ok to shower with it in place. prescriptions in chart. Status: Acute Time Spent With Patient Time: Total time spent is greater than 50% in coordination of care (as documented) at patient's floor/unit and/or counseling patient:
[2021-06-24] MEDS: sitaGLIPtin 100 MG TABLET PO SCH (09:15)
[2021-06-24] MEDS: LABETALOL 100 MG TABLET PO SCH ×2 (09:15→20:47)
[2021-06-24] MEDS: MULTIVIT,THER IRON,CA,FA & MIN 1 TABLET PO SCH (09:15)
[2021-06-24] MEDS: DOCUSATE SODIUM 100 MG CAPSULE PO SCH ×2 (09:15→20:47)
[2021-06-24] MEDS: APIXABAN 5 MG TABLET PO SCH ×2 (09:15→20:47)
[2021-06-24] MEDS: LACTATED RINGERS 1,000 ML IV SCH (09:16)
--- NOTE | 2021-06-24 12:19 | Internal Med Progress Note ---
SUBJECTIVE Subjective Patient information: Note initiated : 06/24/21 at 12:15 pm Service Date, if different from initiated Date: [] Patient: Mary Biswas 81 y/o F admitted on 06/23/21 for extremity injury. Chief Complaint: [] Interval history: Ms Biswas is a 81 year old F with a history of DM type II/hypertension who fell this evening while walking her dog when she got accidentally pulled and landed on the ground. She immediately felt pain. She was brought into the ER for evaluation. Initial work-up was consistent with right hip fracture. Dr. Ramesh was consulted and patient was taken to surgery from the ER. Postoperatively hospitalist service was consulted for management while patient will undergo postoperative care as per Ortho recommendations. of medical issues including hypertension/diabetes I was a evaluate patient in the PACU. Patient to is immediately postop under effect of sedation/anesthesia. Intraoperatively patient maintained MAP She was able to answer some of the question. she does not appear to be distressed. She maintained good map intraoperatively. She is currently on room air. Family members are present. Most of the history was obtained from review of medical record/family members. No pre cipitating events including lightheadedness dizziness experienced prior to fall Patient has a good functional baseline lives alone however daughter wants her to return home and stay with her for a few days following discharge from hospital. She denies recent hospitalization, pneumonia, chronic renal disease, recent CVA or MIs. 06/24-patient seen in room along with her daughter. In good spirits. Doing well. No significant postop pain. Was able to get out of bed and walk few steps. Ongoing physical therapy. Tolerating diet. No significant postoperative concerns. Stable labs and hemodynamics. Potassium improved to 3.5 from 3 with replacement. Systolic stable Constitutional Vitals: Vital Signs Temp Pulse Resp BP Pulse Ox 97.8 F 75 16 154/70 100 06/24/21 09:00 06/24/21 09:00 06/24/21 09:00 06/24/21 09:00 06/24/21 09:00 Period Temp Pulse Resp BP Sys/Massey Pulse Ox Last 24 Hr 97.0 F-97.9 F 60-99 9-30 145-196/61-121 94-100 Intake and Output 11/24/21 11/25/21 11/25/21 21:59 05:59 13:59 Intake Total 150 1400 Output Total 0 1250 100 Balance 150 -1250 1300 Weight 74.843 kg 67.041 kg Alert oriented Nonlabored breathing No significant swelling or bruising around the surgery site. No anxiety No lymphedema Intake & Output: Intake & Output 06/23/21 06/24/21 06/24/21 21:59 05:59 13:59 Intake Total 150 1400 Output Total 0 1250 100 Balance 150 -1250 1300 Weight 74.843 kg 67.041 kg Intake: IV 150 1000 Lactated Ringers 1,000 ml @ 75 1000 mls/hr IV .[id number] [facility] Rx#: [id number] Ancef 2 gm In Dextrose 5% in 50 Water 50 ml @ 100 mls/hr IV PREOP [facility] Rx#:[id number] Oral 400 Output: Urine Catheter Amount 1250 Void Amount 0 0 100 Other: Meal Breakfast Percent of Meal Consumed 100% Feeding Ability Independent Urine Appearance Clear Clear Clear Straight Clear Clear Urine Color Bright Yellow Straw Dark Yellow Straight Bright Yellow Straw Urine Odor Normal Normal # Bowel Movements 0 OBJ DATA Labs CBC & Chem 7: 06/24/21 05:29 06/24/21 05:29 Labs: Abnormal Lab Results 06/24/21 06/24/21 06/23/21 05:29 05:29 18:02 MPV 11.2 H Neut % (Auto) 91.2 H Lymph % (Auto) 6.6 L Lymph # (Auto) 0.67 L Absolute Neutrophils 9.20 H POC Potassium 3.0 L Anion Gap 18.0 H Glucose 217 H POC Glucose 143 H AST 43 H Lactate Dehydrogenase 251 H 06/23/21 18:02 MPV 11.2 H Neut % (Auto) Lymph % (Auto) Lymph # (Auto) Absolute Neutrophils POC Potassium Anion Gap Glucose POC Glucose AST Lactate Dehydrogenase Meds: Medications Acetaminophen (Acetaminophen 500 Mg Tablet) 1,000 mg PO Q8 [facility]; Protocol Apixaban (Apixaban 5 Mg Tablet) 2.5 mg PO BID [facility] Last Admin: 06/24/21 09:15 Dose: 2.5 mg Documented by: Dextrose (Dextrose 50% 50 Ml Vial) 0 ml IV UD PRN PRN Reason: Hypoglycemia Diagnostic Test (Pha) (Accu-Chek 1 Each Strip) 1 each FS ACHS [facility] Last Admin: 06/24/21 11:25 Dose: 1 each Documented by: Docusate Sodium (Docusate Sodium 100 Mg Capsule) 100 mg PO BID [facility] Last Admin: 06/24/21 09:15 Dose: 100 mg Documented by: Glucose (Dextrose 31 Gm Oral.Susp) 15 gm PO PRN PRN PRN Reason: Hypoglycemia Hydralazine HCl (Hydralazine 20 Mg/Ml Vial) 10 mg IV Q4-6HP PRN PRN Reason: Hypertension Lactated Ringer's (Lactated Ringers) 1,000 mls @ 75 mls/hr IV .[id number] [facility] Last Infusion: 06/24/21 11:38 Dose: Infused Documented by: Potassium Chloride 40 meq/ (Dextrose) 520 mls @ 130 mls/hr IV UD PRN PRN Reason: K+ = or < 3.5 Magnesium Sulfate (Magnesium Sulfate) 2 gm in 50 mls @ 50 mls/hr IV UD PRN PRN Reason: MG = or < 1.7 Insulin Human Lispro (Insulin Lispro 1 Unit/0.01 Ml Unit) 0 unit SQ ACHS [facility]; Protocol Last Admin: 06/24/21 11:24 Dose: 3 units Documented by: Iron Carb/Multivit/[place]/Folic Acid (Multivit,Ther Iron,Ca,Fa & Min 1 Tablet) 1 tab PO DAILY [facility] Last Admin: 06/24/21 09:15 Dose: 1 tab Documented by: Labetalol HCl (Labetalol 100 Mg Tablet) 200 mg PO BID [facility] Last Admin: 06/24/21 09:15 Dose: 200 mg Documented by: Lisinopril (Lisinopril 20 Mg Tablet) 20 mg PO [facility] Melatonin (Melatonin 3 Mg Tablet) 3 mg PO HSP PRN PRN Reason: Insomnia Methocarbamol (Methocarbamol 500 Mg Tablet) 500 mg PO Q6HP PRN PRN Reason: Muscle Spasm Metoprolol Tartrate (Metoprolol Tartrate 5 Mg/5 Ml Vial) 5 mg IV Q5M PRN PRN Reason: Heart Rate > 140 bpm Ondansetron HCl (Ondansetron 4 Mg Odt Tablet) 4 mg SL Q4-6HP PRN; Protocol PRN Reason: Nausea And Vomiting Last Admin: 06/24/21 09:19 Dose: 4 mg Documented by: Ondansetron HCl (Ondansetron 4 Mg/2 Ml Vial) 4 mg IV Q4-6HP PRN; Protocol PRN Reason: Nausea And Vomiting Oxycodone HCl (Oxycodone Hcl 5 Mg Tablet) 5 - 10 mg PO Q4-6HP PRN; Protocol PRN Reason: Per Pain Protocol Polyethylene Glycol (Polyethylene Glycol 3350 17 Gm Packet) 17 gm PO DAILYP PRN PRN Reason: Constipation Potassium Chloride (Potassium Chloride 20 Meq Packet) 40 meq PO DAILYP PRN PRN Reason: K+ < 3.5 Senna/Docusate Sodium (Sennosides/Docusate Sodium 1 Tab Tablet) 1 tab PO HS [facility] Last Admin: 06/23/21 22:59 Dose: Not Given Documented by: Sitagliptin Phosphate (Sitagliptin 100 Mg Tablet) 100 mg PO DAILY [facility] Last Admin: 06/24/21 09:15 Dose: 100 mg Documented by: Sodium Chloride (0.9 % Sodium Chloride 10 Ml Syringe) 10 ml IV Q8 [facility] Last Admin: 06/24/21 05:13 Dose: Not Given Documented by: A/P Narrative A/P Narrative: * Right hip fractur status post operative intervention. Managed per orthopedics * pain management well controlled * Poorly controlled hypertension well-controlled on labetalol/ARB/as needed hydralazine * Hypokalemia resolved with replacement * DM type II continue basal prandial insulin * DVT prophylaxis on apixaban per orthopedics plan * Continue postop care per orthopedics * pain management * pre-existing medical condition management on home medications * PT OT/nutrition support * discharge planning per case management Time Spent With Patient Time: Total time spent is greater than 50% in coordination of care (as documented) at patient's floor/unit and/or counseling patient: Total time spent with greater than 50% in coordination of care (as documented) at patient's floor/unit and/or counseling patient:: Greater than 35 minutes QUALITY VTE Deep Vein Thrombosis/Pulmonary Embolism Present on Admission: No
[2021-06-24] MEDS: ACETAMINOPHEN 500 MG TABLET PO SCH ×2 (13:39→20:45)
[2021-06-24] MEDS: LISINOPRIL 20 MG TABLET PO SCH (20:46)
[2021-06-24] MEDS: SENNOSIDES/DOCUSATE SODIUM 1 TAB TABLET PO SCH (20:48)
[2021-06-25] MEDS: LACTATED RINGERS 1,000 ML IV SCH ×2 (01:24→11:28)
[2021-06-25] MEDS: 0.9 % SODIUM CHLORIDE 10 ML SYRINGE IV SCH ×3 (05:35→21:10)
[2021-06-25] MEDS: ACETAMINOPHEN 500 MG TABLET PO SCH ×3 (05:37→21:08)
[2021-06-25 07:09] LABS: Basophils # (Auto) 0.02 K/mcL (0.00-0.30); Basophils % (Auto) 0.2 % (0.0-2.0); Eosinophils # (Auto) 0.01 K/mcL (0.00-0.70); Eosinophils % (Auto) 0.1 % (0.0-7.0); Hematocrit 32.1 % (34.1-44.9); Hemoglobin 10.9 g/dL (11.2-15.7); Lymphocytes # (Auto) 2.04 K/mcL (1.50-4.80); Lymphocytes % (Auto) 18.6 % (15.5-49.0); Mean Cell Volume 93.6 fL (80.0-100.0); Mean Platelet Volume 11.6 fL (7.4-10.4); Monocytes # (Auto) 0.73 K/mcL (0.10-0.90); Monocytes % (Auto) 6.7 % (1.0-12.0); Neutrophils % (Auto) 74.4 % (38.0-78.0); Platelet Count 193 K/mcL (140-440); RBC 3.43 M/mcL (3.59-5.38); Red Cell Distribution Width 13.2 % (11.5-14.5)
[2021-06-25] MEDS: INSULIN LISPRO 1 UNIT/0.01 ML UNIT SQ SCH ×4 (07:17→21:08)
[2021-06-25 07:48] LABS: ALT/SGPT 6 U/L (<40); AST/SGOT 32 U/L (<32); Albumin 3.2 gm/dL (3.2-5.2); Albumin/Globulin Ratio 1.4 (1.0-2.3); Alkaline Phosphatase 54 U/L (39-117); Bilirubin,Direct < 0.2 mg/dL (0-0.3); Bilirubin,Total 0.9 mg/dL (0.1-1.0); Blood Urea Nitrogen 18 mg/dL (8-23); Calcium 9.1 mg/dL (8.6-10.4); Carbon Dioxide 24 mmol/L (22-30); Chloride 98 mmol/L (96-108); Globulin 2.3 gm/dL (2.2-3.7); Glomerular Filtration Rate 47; Glucose 136 mg/dL (70-105); Lactate Dehydrogenase 251 U/L (135-225); Phosphorous 4.2 mg/dL (2.5-4.5); Triglycerides 143 mg/dL (<150); Uric Acid 5.6 mg/dL (2.5-8.0)
--- NOTE | 2021-06-25 08:11 | Internal Med Progress Note ---
SUBJECTIVE Subjective Patient information: Note initiated : 06/25/21 at 8:09 am Service Date, if different from initiated Date: [] Patient: Mary Biswas a 81 y/o F admitted on 06/23/21 for extremity injury. Chief Complaint: [] Interval history: Ms Biswas is a 81 year old F with a history of DM type II/hypertension who fell this evening while walking her dog when she got accidentally pulled and landed on the ground. She immediately felt pain. She was brought into the ER for evaluation. Initial work-up was consistent with right hip fracture. Dr. Ramesh was consulted and patient was taken to surgery from the ER. Postoperatively hospitalist service was consulted for management while patient will undergo postoperative care as per Ortho recommendations. of medical issues including hypertension/diabetes I was a evaluate patient in the PACU. Patient to is immediately postop under effect of sedation/anesthesia. Intraoperatively patient maintained MAP She was able to answer some of the question. she does not appear to be distressed. She maintained good map intraoperatively. She is currently on room air. Family members are present. Most of the history was obtained from review of medical record/family members. No prec ipitating events including lightheadedness dizziness experienced prior to fall Patient has a good functional baseline lives alone however daughter wants her to return home and stay with her for a few days following discharge from hospital. She denies recent hospitalization, pneumonia, chronic renal disease, recent CVA or MIs. 06/24-patient seen in room along with her daughter. In good spirits. Doing well. No significant postop pain. Was able to get out of bed and walk few steps. Ongoing physical therapy. Tolerating diet. No significant postoperative concerns. Stable labs and hemodynamics. Potassium improved to 3.5 from 3 with replacement. Systolic stable 06/25-, patient doing a lot better. Postop day 2. Doing well. Anticipate discharge home with her daughter in 24 hours. Stable labs and hemodynamics. No concerns expressed by nursing staff. Potassium improved to 3.5. Constitutional Vitals: Vital Signs Temp Pulse Resp BP Pulse Ox 97.3 F 62 16 116/59 98 06/25/21 07:34 06/25/21 04:00 06/25/21 07:34 06/25/21 07:34 06/25/21 07:34 Period Temp Pulse Resp BP Sys/Massey Pulse Ox Last 24 Hr 96.5 F-99.2 F 61-99 16-18 116-161/52-70 96-100 Intake and Output 06/24/21 06/25/21 06/25/21 21:59 05:59 13:59 Intake Total 1280 200 0 Output Total 300 450 Balance 980 -250 0 Weight 69.445 kg alert oriented Nonlabored breathing No anxiety No operative site swelling or bruising Intake & Output: Intake & Output 06/24/21 06/25/21 06/25/21 21:59 05:59 13:59 Intake Total 1280 200 0 Output Total 300 450 Balance 980 -250 0 Weight 69.445 kg Intake: Oral 1280 200 0 Output: Void Amount 300 450 Other: Meal Breakfast Percent of Meal Consumed 100% Urine Appearance Clear Urine Color Dark Yellow Light Marta Urine Odor Strong Strong OBJ DATA Labs CBC & Chem 7: 06/25/21 05:38 06/25/21 05:38 Labs: Abnormal Lab Results 06/25/21 06/25/21 06/24/21 05:38 05:38 05:29 RBC 3.43 L Hgb 10.9 L Hct 32.1 L MPV 11.6 H Neut % (Auto) Lymph % (Auto) Lymph # (Auto) Absolute Neutrophils 8.16 H POC Potassium Anion Gap 18.0 H Glucose 136 H 217 H POC Glucose AST 32 H 43 H Lactate Dehydrogenase 251 H 251 H Total Protein 5.5 L 06/24/21 06/23/21 06/23/21 05:29 18:02 18:02 RBC Hgb Hct MPV 11.2 H 11.2 H Neut % (Auto) 91.2 H Lymph % (Auto) 6.6 L Lymph # (Auto) 0.67 L Absolute Neutrophils 9.20 H POC Potassium 3.0 L Anion Gap Glucose POC Glucose 143 H AST Lactate Dehydrogenase Total Protein Meds: Medications Acetaminophen (Acetaminophen 500 Mg Tablet) 1,000 mg PO Q8 [facility]; Protocol Last Admin: 06/25/21 05:37 Dose: 1,000 mg Documented by: Apixaban (Apixaban 5 Mg Tablet) 2.5 mg PO BID [facility] Last Admin: 06/24/21 20:47 Dose: 2.5 mg Documented by: Dextrose (Dextrose 50% 50 Ml Vial) 0 ml IV UD PRN PRN Reason: Hypoglycemia Diagnostic Test (Pha) (Accu-Chek 1 Each Strip) [address] [facility] Last Admin: 06/25/21 07:16 Dose: 1 each Documented by: Docusate Sodium (Docusate Sodium 100 Mg Capsule) 100 mg PO BID [facility] Last Admin: 06/24/21 20:47 Dose: Not Given Documented by: Glucose (Dextrose 31 Gm Oral.Susp) 15 gm PO PRN PRN PRN Reason: Hypoglycemia Hydralazine HCl (Hydralazine 20 Mg/Ml Vial) 10 mg IV Q4-6HP PRN PRN Reason: Hypertension Lactated Ringer's (Lactated Ringers) 1,000 mls @ 75 mls/hr IV .[id number] [facility] Last Admin: 06/25/21 01:24 Dose: Not Given Documented by: Potassium Chloride 40 meq/ (Dextrose) 520 mls @ 130 mls/hr IV UD PRN PRN Reason: K+ = or < 3.5 Magnesium Sulfate (Magnesium Sulfate) 2 gm in 50 mls @ 50 mls/hr IV UD PRN PRN Reason: MG = or < 1.7 Insulin Human Lispro (Insulin Lispro 1 Unit/0.01 Ml Unit) 0 unit SQ [facility]; Protocol Last Admin: 06/25/21 07:17 Dose: Not Given Documented by: Iron Carb/Multivit/[place]/Folic Acid (Multivit,Ther Iron,Ca,Fa & Min 1 Tablet) 1 tab PO DAILY [facility] Last Admin: 06/24/21 09:15 Dose: 1 tab Documented by: Labetalol HCl (Labetalol 100 Mg Tablet) 200 mg PO BID [facility] Last Admin: 06/24/21 20:47 Dose: 200 mg Documented by: Lisinopril (Lisinopril 20 Mg Tablet) 20 mg PO HS [facility] Last Admin: 06/24/21 20:46 Dose: 20 mg Documented by: Melatonin (Melatonin 3 Mg Tablet) 3 mg PO HSP PRN PRN Reason: Insomnia Methocarbamol (Methocarbamol 500 Mg Tablet) 500 mg PO Q6HP PRN PRN Reason: Muscle Spasm Metoprolol Tartrate (Metoprolol Tartrate 5 Mg/5 Ml Vial) 5 mg IV Q5M PRN PRN Reason: Heart Rate > 140 bpm Ondansetron HCl (Ondansetron 4 Mg Odt Tablet) 4 mg SL Q4-6HP PRN; Protocol PRN Reason: Nausea And Vomiting Last Admin: 06/24/21 09:19 Dose: 4 mg Documented by: Ondansetron HCl (Ondansetron 4 Mg/2 Ml Vial) 4 mg IV Q4-6HP PRN; Protocol PRN Reason: Nausea And Vomiting Oxycodone HCl (Oxycodone Hcl 5 Mg Tablet) 5 - 10 mg PO Q4-6HP PRN; Protocol PRN Reason: Per Pain Protocol Polyethylene Glycol (Polyethylene Glycol 3350 17 Gm Packet) 17 gm PO DAILYP PRN PRN Reason: Constipation Potassium Chloride (Potassium Chloride 20 Meq Packet) 40 meq PO DAILYP PRN PRN Reason: K+ < 3.5 Senna/Docusate Sodium (Sennosides/Docusate Sodium 1 Tab Tablet) 1 tab PO HS [facility] Last Admin: 06/24/21 20:48 Dose: Not Given Documented by: Sitagliptin Phosphate (Sitagliptin 100 Mg Tablet) 100 mg PO DAILY [facility] Last Admin: 06/24/21 09:15 Dose: 100 mg Documented by: Sodium Chloride (0.9 % Sodium Chloride 10 Ml Syringe) 10 ml IV Q8 [facility] Last Admin: 06/25/21 05:35 Dose: 10 ml Documented by: A/P Narrative A/P Narrative: * Right hip fracture status post operative intervention. Postop day 2. Managed per orthopedics. Anticipate discharge in 24 hours. Ongoing physical therapy * pain management well controlled * History of hypertension well-controlled on labetalol/ARB/as needed hydralazine * Hypokalemia resolved with replacement * DM type II continue basal prandial insulin * DVT prophylaxis on apixaban per orthopedics plan * Postop care per orthopedics * pre-existing medical condition management on home medications * PT OT/nutrition support * Discharge likely home with her daughter in 24 hours Time Spent With Patient Time: Total time spent is greater than 50% in coordination of care (as documented) at patient's floor/unit and/or counseling patient: Total time spent with greater than 50% in coordination of care (as documented) at patient's floor/unit and/or counseling patient:: Greater than 35 minutes QUALITY VTE Deep Vein Thrombosis/Pulmonary Embolism Present on Admission: No
[2021-06-25] MEDS: LABETALOL 100 MG TABLET PO SCH ×2 (08:38→21:07)
[2021-06-25] MEDS: DOCUSATE SODIUM 100 MG CAPSULE PO SCH ×2 (08:38→21:05)
[2021-06-25] MEDS: APIXABAN 5 MG TABLET PO SCH ×2 (08:38→21:07)
[2021-06-25] MEDS: MULTIVIT,THER IRON,CA,FA & MIN 1 TABLET PO SCH (08:38)
[2021-06-25] MEDS: sitaGLIPtin 100 MG TABLET PO SCH (08:38)
[2021-06-25] MEDS ORDERED: HEPARIN 5,000 UNIT/ML VIAL SQ SCH (09:00)
--- NOTE | 2021-06-25 09:12 | Orthopedic Progress Note ---
SUBJECTIVE Subjective Patient information: Note initiated : 06/25/21 at 9:10 am Service Date, if different from initiated Date: [] Patient: Mary Biswas 81 y/o F admitted on 06/23/21 for extremity injury. Chief Complaint: [no complaints] Principal diagnosis: hip fracture Interval history: doing well Constitutional Vitals: Vital Signs Temp Pulse Resp BP Pulse Ox 97.3 F 62 16 116/59 98 06/25/21 07:34 06/25/21 04:00 06/25/21 07:34 06/25/21 07:34 06/25/21 07:34 Period Temp Pulse Resp BP Sys/Massey Pulse Ox Last 24 Hr 96.5 F-99.2 F 61-99 16-18 116-161/52-68 96-100 Intake and Output 06/24/21 06/25/21 06/25/21 21:59 05:59 13:59 Intake Total 1280 200 0 Output Total 300 450 Balance 980 -250 0 Weight 153 lb 1.6 oz Intake & Output: Intake & Output 06/24/21 06/25/21 06/25/21 21:59 05:59 13:59 Intake Total 1280 200 0 Output Total 300 450 Balance 980 -250 0 Weight 153 lb 1.6 oz Intake: Oral 1280 200 0 Output: Void Amount 300 450 Other: Meal Breakfast Percent of Meal Consumed 100% Urine Appearance Clear Urine Color Dark Yellow Light Marta Urine Odor Strong Strong General appearance: average body habitus, cooperative and no acute distress Extremities Exam Extremities exam: Present Foot pink and warm and neurovascular intact Neurological Exam Neurological exam: Present abnormal gait, alert, CN II-XII intact and oriented X3 OBJ DATA Labs CBC & Chem 7: 06/25/21 05:38 06/25/21 05:38 Labs: Abnormal Lab Results 06/25/21 06/25/21 06/24/21 05:38 05:38 05:29 RBC 3.43 L Hgb 10.9 L Hct 32.1 L MPV 11.6 H Neut % (Auto) Lymph % (Auto) Lymph # (Auto) Absolute Neutrophils 8.16 H POC Potassium Anion Gap 18.0 H Glucose 136 H 217 H POC Glucose AST 32 H 43 H Lactate Dehydrogenase 251 H 251 H Total Protein 5.5 L 06/24/21 06/23/21 06/23/21 05:29 18:02 18:02 RBC Hgb Hct MPV 11.2 H 11.2 H Neut % (Auto) 91.2 H Lymph % (Auto) 6.6 L Lymph # (Auto) 0.67 L Absolute Neutrophils 9.20 H POC Potassium 3.0 L Anion Gap Glucose POC Glucose 143 H AST Lactate Dehydrogenase Total Protein Meds: Medications Acetaminophen (Acetaminophen 500 Mg Tablet) 1,000 mg PO Q8 [facility]; Protocol Last Admin: 06/25/21 05:37 Dose: 1,000 mg Documented by: Apixaban (Apixaban 5 Mg Tablet) 2.5 mg PO BID [facility] Last Admin: 06/25/21 08:38 Dose: 2.5 mg Documented by: Dextrose (Dextrose 50% 50 Ml Vial) 0 ml IV UD PRN PRN Reason: Hypoglycemia Diagnostic Test (Pha) (Accu-Chek 1 Each Strip) 1 each FS [facility] Last Admin: 06/25/21 07:16 Dose: 1 each Documented by: Docusate Sodium (Docusate Sodium 100 Mg Capsule) 100 mg PO BID [facility] Last Admin: 06/25/21 08:38 Dose: 100 mg Documented by: Glucose (Dextrose 31 Gm Oral.Susp) 15 gm PO PRN PRN PRN Reason: Hypoglycemia Hydralazine HCl (Hydralazine 20 Mg/Ml Vial) 10 mg IV Q4-6HP PRN PRN Reason: Hypertension Lactated Ringer's (Lactated Ringers) 1,000 mls @ 75 mls/hr IV .[id number] [facility] Last Admin: 06/25/21 01:24 Dose: Not Given Documented by: Potassium Chloride 40 meq/ (Dextrose) 520 mls @ 130 mls/hr IV UD PRN PRN Reason: K+ = or < 3.5 Magnesium Sulfate (Magnesium Sulfate) 2 gm in 50 mls @ 50 mls/hr IV UD PRN PRN Reason: MG = or < 1.7 Insulin Human Lispro (Insulin Lispro 1 Unit/0.01 Ml Unit) 0 unit SQ [facility]; Protocol Last Admin: 06/25/21 07:17 Dose: Not Given Documented by: Iron Carb/Multivit/Audiology Doctor/Folic Acid (Multivit,Ther Iron,Ca,Fa & Min 1 Tablet) 1 tab PO DAILY [facility] Last Admin: 06/25/21 08:38 Dose: 1 tab Documented by: Labetalol HCl (Labetalol 100 Mg Tablet) 200 mg PO BID [facility] Last Admin: 06/25/21 08:38 Dose: 200 mg Documented by: Lisinopril (Lisinopril 20 Mg Tablet) 20 mg PO [facility] Last Admin: 06/24/21 20:46 Dose: 20 mg Documented by: Melatonin (Melatonin 3 Mg Tablet) 3 mg PO HSP PRN PRN Reason: Insomnia Methocarbamol (Methocarbamol 500 Mg Tablet) 500 mg PO Q6HP PRN PRN Reason: Muscle Spasm Metoprolol Tartrate (Metoprolol Tartrate 5 Mg/5 Ml Vial) 5 mg IV Q5M PRN PRN Reason: Heart Rate > 140 bpm Ondansetron HCl (Ondansetron 4 Mg Odt Tablet) 4 mg SL Q4-6HP PRN; Protocol PRN Reason: Nausea And Vomiting Last Admin: 06/24/21 09:19 Dose: 4 mg Documented by: Ondansetron HCl (Ondansetron 4 Mg/2 Ml Vial) 4 mg IV Q4-6HP PRN; Protocol PRN Reason: Nausea And Vomiting Oxycodone HCl (Oxycodone Hcl 5 Mg Tablet) 5 - 10 mg PO Q4-6HP PRN; Protocol PRN Reason: Per Pain Protocol Polyethylene Glycol (Polyethylene Glycol 3350 17 Gm Packet) 17 gm PO DAILYP PRN PRN Reason: Constipation Potassium Chloride (Potassium Chloride 20 Meq Packet) 40 meq PO DAILYP PRN PRN Reason: K+ < 3.5 Senna/Docusate Sodium (Sennosides/Docusate Sodium 1 Tab Tablet) 1 tab PO [facility] Last Admin: 06/24/21 20:48 Dose: Not Given Documented by: Sitagliptin Phosphate (Sitagliptin 100 Mg Tablet) 100 mg PO DAILY [facility] Last Admin: 06/25/21 08:38 Dose: 100 mg Documented by: Sodium Chloride (0.9 % Sodium Chloride 10 Ml Syringe) 10 ml IV Q8 [facility] Last Admin: 06/25/21 05:35 Dose: 10 ml Documented by: A/P Narrative A/P Narrative: dc home with daughter Time Spent With Patient Time: Total time spent is greater than 50% in coordination of care (as documented) at patient's floor/unit and/or counseling patient: Total time spent with greater than 50% in coordination of care (as documented) at patient's floor/unit and/or counseling patient:: 15 - 24 minutes
--- NOTE | 2021-06-25 09:35 | EKG ---
[facility] Test Date: 2021-06-23 Pat Name: Mary Biswas Department: [facility] Room: 128 Gender: Female Manager Balance: : 1940 Requested By: Miranda Ramesh Order Number: [id number] Reading MD: Omar Villasenor Measurements Intervals [place] Rate: 63 P: 60 RI: 178 QRS: -18 QRSD: 88 T: 58 QT: 441 QTc: 452 Interpretive Statements Sinus rhythm Consider left ventricular hypertrophy Electronically Signed On 06-25-2021 9:35:50 PST by Omar Villasenor /store/[email or web address]/[id number]/[id number]
[2021-06-25] MEDS: SENNOSIDES/DOCUSATE SODIUM 1 TAB TABLET PO SCH (21:06)
[2021-06-25] MEDS: LISINOPRIL 20 MG TABLET PO SCH (21:08)
[2021-06-26] MEDS: LACTATED RINGERS 1,000 ML IV SCH (03:38)
[2021-06-26] MEDS: ACETAMINOPHEN 500 MG TABLET PO SCH (05:20)
[2021-06-26] MEDS: 0.9 % SODIUM CHLORIDE 10 ML SYRINGE IV SCH (05:21)
[2021-06-26 06:49] LABS: Basophils # (Auto) 0.03 K/mcL (0.00-0.30); Basophils % (Auto) 0.4 % (0.0-2.0); Eosinophils # (Auto) 0.19 K/mcL (0.00-0.70); Eosinophils % (Auto) 2.2 % (0.0-7.0); Hematocrit 33.1 % (34.1-44.9); Hemoglobin 10.8 g/dL (11.2-15.7); Lymphocytes # (Auto) 2.66 K/mcL (1.50-4.80); Lymphocytes % (Auto) 31.1 % (15.5-49.0); Mean Cell Volume 96.5 fL (80.0-100.0); Mean Corpuscular HGB Conc 32.6 g/dL (31.0-36.0); Mean Platelet Volume 11.3 fL (7.4-10.4); Monocytes # (Auto) 0.72 K/mcL (0.10-0.90); Monocytes % (Auto) 8.4 % (1.0-12.0); Neutrophils % (Auto) 57.9 % (38.0-78.0); Platelet Count 178 K/mcL (140-440); RBC 3.43 M/mcL (3.59-5.38); Red Cell Distribution Width 13.2 % (11.5-14.5); WBC 8.6 K/mcL (4.5-11.0)
[2021-06-26 07:11] LABS: ALT/SGPT < 5 U/L (<40); AST/SGOT 27 U/L (<32); Albumin 3.2 gm/dL (3.2-5.2); Albumin/Globulin Ratio 1.5 (1.0-2.3); Alkaline Phosphatase 52 U/L (39-117); Bilirubin,Direct < 0.2 mg/dL (0-0.3); Bilirubin,Total 0.6 mg/dL (0.1-1.0); Blood Urea Nitrogen 24 mg/dL (8-23); Calcium 8.9 mg/dL (8.6-10.4); Carbon Dioxide 27 mmol/L (22-30); Chloride 101 mmol/L (96-108); Globulin 2.2 gm/dL (2.2-3.7); Glomerular Filtration Rate 47; Glucose 102 mg/dL (70-105); Lactate Dehydrogenase 186 U/L (135-225); Phosphorous 3.5 mg/dL (2.5-4.5); Triglycerides 140 mg/dL (<150); Uric Acid 5.6 mg/dL (2.5-8.0)
[2021-06-26] MEDS: INSULIN LISPRO 1 UNIT/0.01 ML UNIT SQ SCH (07:39)
[2021-06-26] MEDS: sitaGLIPtin 100 MG TABLET PO SCH (08:24)
[2021-06-26] MEDS: LABETALOL 100 MG TABLET PO SCH (08:24)
[2021-06-26] MEDS: DOCUSATE SODIUM 100 MG CAPSULE PO SCH (08:25)
[2021-06-26] MEDS: APIXABAN 5 MG TABLET PO SCH (08:25)
[2021-06-26] MEDS: MULTIVIT,THER IRON,CA,FA & MIN 1 TABLET PO SCH (08:25)
--- NOTE | 2021-06-26 09:54 | Orthopedic Progress Note ---
SUBJECTIVE Subjective Patient information: Note initiated : 06/26/21 at 9:51 am Service Date, if different from initiated Date: [] Patient: Mary Biswas 81 y/o F admitted on 06/23/21 for extremity injury. Chief Complaint: mimimal pain and eating and drinking well[] Principal diagnosis: hip fracture Constitutional Vitals: Vital Signs Temp Pulse Resp BP Pulse Ox 97.9 F 60 16 131/58 95 06/26/21 07:18 06/26/21 07:18 06/26/21 07:18 06/26/21 07:18 06/26/21 09:21 Period Temp Pulse Resp BP Sys/Massey Pulse Ox Last 24 Hr 96.9 F-98.5 F 60-63 16-20 106-131/47-58 95-99 Intake and Output 06/25/21 06/26/21 06/26/21 21:59 05:59 13:59 Intake Total 480 200 Balance 480 200 Weight 147 lb 1.6 oz Intake & Output: Intake & Output 06/25/21 06/26/21 06/26/21 21:59 05:59 13:59 Intake Total 480 200 Balance 480 200 Weight 147 lb 1.6 oz Intake: Oral 480 200 Other: Urine Appearance Clear Urine Color Light Marta Urine Odor Strong # Voids 1 # Bowel Movements 0 1 General appearance: no acute distress and thin Head Head exam: Present atraumatic Neck Neck exam: Present normal inspection Respiratory Respiratory exam: Present normal respiratory exam Extremities Exam Extremities exam: Present normal capillary refill and neurovascular intact Neurological Exam Neurological exam: Present alert, CN II-XII intact and oriented X3 OBJ DATA Labs CBC & Chem 7: 06/26/21 05:19 06/26/21 05:19 Labs: Abnormal Lab Results 06/26/21 06/26/21 06/25/21 05:19 05:19 05:38 RBC 3.43 L Hgb 10.8 L Hct 33.1 L MPV 11.3 H Neut % (Auto) Lymph % (Auto) Lymph # (Auto) Absolute Neutrophils POC Potassium Anion Gap BUN 24 H Glucose 136 H POC Glucose AST 32 H Lactate Dehydrogenase 251 H Total Protein 5.4 L 5.5 L 06/25/21 06/24/21 06/24/21 05:38 05:29 05:29 RBC 3.43 L Hgb 10.9 L Hct 32.1 L MPV 11.6 H 11.2 H Neut % (Auto) 91.2 H Lymph % (Auto) 6.6 L Lymph # (Auto) 0.67 L Absolute Neutrophils 8.16 H 9.20 H POC Potassium Anion Gap 18.0 H BUN Glucose 217 H POC Glucose AST 43 H Lactate Dehydrogenase 251 H Total Protein 06/23/21 06/23/21 18:02 18:02 RBC Hgb Hct MPV 11.2 H Neut % (Auto) Lymph % (Auto) Lymph # (Auto) Absolute Neutrophils POC Potassium 3.0 L Anion Gap BUN Glucose POC Glucose 143 H AST Lactate Dehydrogenase Total Protein Meds: Medications Acetaminophen (Acetaminophen 500 Mg Tablet) 1,000 mg PO Q8 [facility]; Protocol Last Admin: 06/26/21 05:20 Dose: 1,000 mg Documented by: Apixaban (Apixaban 5 Mg Tablet) 2.5 mg PO BID [facility] Last Admin: 06/26/21 08:25 Dose: 2.5 mg Documented by: Dextrose (Dextrose 50% 50 Ml Vial) 0 ml IV UD PRN PRN Reason: Hypoglycemia Diagnostic Test (Pha) (Accu-Chek 1 Each Strip) 1 each FS [facility] Last Admin: 06/26/21 07:39 Dose: 1 each Documented by: Docusate Sodium (Docusate Sodium 100 Mg Capsule) 100 mg PO BID [facility] Last Admin: 06/26/21 08:25 Dose: 100 mg Documented by: Glucose (Dextrose 31 Gm Oral.Susp) 15 gm PO PRN PRN PRN Reason: Hypoglycemia Hydralazine HCl (Hydralazine 20 Mg/Ml Vial) 10 mg IV Q4-6HP PRN PRN Reason: Hypertension Lactated Ringer's (Lactated Ringers) 1,000 mls @ 75 mls/hr IV .[id number] [facility] Last Admin: 06/26/21 03:38 Dose: Not Given Documented by: Potassium Chloride 40 meq/ (Dextrose) 520 mls @ 130 mls/hr IV UD PRN PRN Reason: K+ = or < 3.5 Magnesium Sulfate (Magnesium Sulfate) 2 gm in 50 mls @ 50 mls/hr IV UD PRN PRN Reason: MG = or < 1.7 Insulin Human Lispro (Insulin Lispro 1 Unit/0.01 Ml Unit) 0 unit SQ ACHS [facility]; Protocol Last Admin: 06/26/21 07:39 Dose: Not Given Documented by: Iron Carb/Multivit/[place]/Folic Acid (Multivit,Ther Iron,Ca,Fa & Min 1 Tablet) 1 tab PO DAILY [facility] Last Admin: 06/26/21 08:25 Dose: 1 tab Documented by: Labetalol HCl (Labetalol 100 Mg Tablet) 200 mg PO BID [facility] Last Admin: 06/26/21 08:24 Dose: 200 mg Documented by: Lisinopril (Lisinopril 20 Mg Tablet) 20 mg PO HS [facility] Last Admin: 06/25/21 21:08 Dose: 20 mg Documented by: Melatonin (Melatonin 3 Mg Tablet) 3 mg PO HSP PRN PRN Reason: Insomnia Methocarbamol (Methocarbamol 500 Mg Tablet) 500 mg PO Q6HP PRN PRN Reason: Muscle Spasm Metoprolol Tartrate (Metoprolol Tartrate 5 Mg/5 Ml Vial) 5 mg IV Q5M PRN PRN Reason: Heart Rate > 140 bpm Ondansetron HCl (Ondansetron 4 Mg Odt Tablet) 4 mg SL Q4-6HP PRN; Protocol PRN Reason: Nausea And Vomiting Last Admin: 06/24/21 09:19 Dose: 4 mg Documented by: Ondansetron HCl (Ondansetron 4 Mg/2 Ml Vial) 4 mg IV Q4-6HP PRN; Protocol PRN Reason: Nausea And Vomiting Oxycodone HCl (Oxycodone Hcl 5 Mg Tablet) 5 - 10 mg PO Q4-6HP PRN; Protocol PRN Reason: Per Pain Protocol Polyethylene Glycol (Polyethylene Glycol 3350 17 Gm Packet) 17 gm PO DAILYP PRN PRN Reason: Constipation Potassium Chloride (Potassium Chloride 20 Meq Packet) 40 meq PO DAILYP PRN PRN Reason: K+ < 3.5 Senna/Docusate Sodium (Sennosides/Docusate Sodium 1 Tab Tablet) 1 tab PO [facility] Last Admin: 06/25/21 21:06 Dose: Not Given Documented by: Sitagliptin Phosphate (Sitagliptin 100 Mg Tablet) 100 mg PO DAILY [facility] Last Admin: 06/26/21 08:24 Dose: 100 mg Documented by: Sodium Chloride (0.9 % Sodium Chloride 10 Ml Syringe) 10 ml IV Q8 [facility] Last Admin: 11/27/21 05:21 Dose: 10 ml Documented by: EKG Data When compared to previous EKG: there is no significant change A/P Narrative A/P Narrative: dc home and followup in 2 weeks weight bearing as tolerated Time Spent With Patient Time: Total time spent is greater than 50% in coordination of care (as documented) at patient's floor/unit and/or counseling patient: Total time spent with greater than 50% in coordination of care (as documented) at patient's floor/unit and/or counseling patient:: 15 - 24 minutes
--- NOTE | 2021-06-26 10:13 | Discharge Summary ---
Discharge Provider Provider Patient information: Note initiated : 06/26/21 at 10:10 am Service Date, if different from initiated Date: [] Patient: Mary Biswas 81 y/o F admitted on 06/23/21 for extremity injury. Chief Complaint: [] Date of admission: 06/23/21 21:42 Discharge date: 06/26/21 Primary care physician: Jesus Foss Attending physician on admission: Miranda Ramesh Consults: 06/23/21 Consult to Physician [CONS] Stat Comment: Consulting Provider: Britton Saucedo Reason For Exam: Physician to Consult Consult to Physician [CONS] Stat Comment: Consulting Provider: Miranda Ramesh Reason For Exam: Physician to Consult Attending physician on discharge: Chi Tanner Pui Discharge Meds Discharge Medications Home Medications acetaminophen 500 mg tablet 1,000 mg PO Q8 #90 tab 06/24/21 [Rx Last Taken Unknown] amlodipine 10 mg tablet 10 mg PO QDAY 06/24/21 [History Confirmed 06/24/21 Last Taken Unknown] apixaban 5 mg tablet (Eliquis) 2.5 mg PO BID #66 tab 06/24/21 [Rx Last Taken Unknown] atorvastatin 10 mg tablet (Lipitor) 10 mg PO DAILY 06/24/21 [History Confirmed 06/24/21 Last Taken Unknown] celecoxib 200 mg capsule (Celebrex) 200 mg PO DAILY 06/24/21 [History Confirmed 06/24/21 Last Taken Unknown] docusate sodium 100 mg capsule 100 mg PO BID #60 cap 06/24/21 [Rx Last Taken Unknown] donepezil 23 mg tablet (Aricept) 23 mg PO HS 06/24/21 [History Confirmed 06/24/21 Last Taken Unknown] furosemide 20 mg tablet (Lasix) 20 mg PO DAILY 06/24/21 [History Confirmed 06/24/21 Last Taken Unknown] glipizide 10 mg tablet (Glucotrol) 10 mg PO BID 06/24/21 [History Confirmed 06/24/21 Last Taken Unknown] hydrochlorothiazide 12.5 mg capsule 12.5 mg PO DAILY 06/24/21 [History Confirmed 06/24/21 Last Taken Unknown] methocarbamol 500 mg tablet 500 mg PO Q6HP PRN #20 tab 06/24/21 [Rx Last Taken Unknown] metoprolol succinate 200 mg tablet,extended release 24 hr 200 mg PO QDAY 06/24/21 [History Confirmed 06/24/21 Last Taken Unknown] omeprazole 20 mg capsule,delayed release 20 mg PO DAILY 06/24/21 [History Confirmed 06/24/21 Last Taken Unknown] oxycodone 5 mg tablet 5 - 10 mg PO Q4-6HP PRN #50 tab 06/24/21 [Rx Last Taken Unknown] potassium chloride 20 mEq tablet,extended release 20 meq PO QDAY 06/24/21 [History Confirmed 06/24/21 Last Taken Unknown] sertraline 50 mg tablet (Zoloft) 50 mg PO DAILY 06/24/21 [History Confirmed 06/24/21 Last Taken Unknown] oxycodone 5 mg tablet 5 mg PO Q4H PRN #30 tab MDD 8 06/25/21 [Rx Last Taken Unknown] COURSE Hospital Course Hospital course: Interval history: Ms Biswas is a 81 year old F with a history of DM type II/hypertension who fell this evening while walking her dog when she got accidentally pulled and landed on the ground. She immediately felt pain. She was brought into the ER for evaluation. Initial work-up was consistent with right hip fracture. Dr. Ramesh was consulted and patient was taken to surgery from the ER. Postoperatively hospitalist service was consulted for management while patient will undergo postoperative care as per Ortho recommendations. of medical issues including hypertension/diabetes I was a evaluate patient in the PACU. Patient to is immediately postop under effect of sedation/anesthesia. Intraoperatively patient maintained MAP She was able to answer some of the question. she does not appear to be distressed. She maintained good map intraoperatively. She is currently on room air. Family members are present. Most of the history was obtained from review of medical record/family members. No precipitating events including lightheadedness dizziness experienced prior to fall Patient has a good functional baseline lives alone however daughter wants her to return home and stay with her for a few days following discharge from hospital. She denies recent hospitalization, pneumonia, chronic renal disease, recent CVA or MIs. 06/24-patient seen in room along with her daughter. In good spirits. Doing well. No significant postop pain. Was able to get out of bed and walk few steps. Ongoing physical therapy. Tolerating diet. No significant postoperative concerns. Stable labs and hemodynamics. Potassium improved to 3.5 from 3 with replacement. Systolic stable 06/25-, patient doing a lot better. Postop day 2. Doing well. Anticipate discharge home with her daughter in 24 hours. Stable labs and hemodynamics. No concerns expressed by nursing staff. Potassium improved to 3.5. 06/26: Clinically stable. Discharged. Discharge diagnosis: right hip fracture Time Spent with Patient Time attestation: Total time spent providing and/or coordinating discharge services: Time spent: Less than 30 minutes EXAM Constitutional Vitals: Temp Pulse Resp BP Pulse Ox 36.6 C 60 16 131/58 95 06/26/21 07:18 06/26/21 07:18 06/26/21 07:18 06/26/21 07:18 06/26/21 09:21 General appearance: cooperative and no acute distress Head Head exam: Present atraumatic and normocephalic Eye Eye exam: Present EOMI and PERRL ENT ENT exam: Present mucous membranes moist, normal exam and normal external ear exam Neck Neck exam: Present normal inspection; Absent lymphadenopathy, tenderness or thyromegaly Respiratory Respiratory exam: Absent accessory muscle use, respiratory distress or wheezes Cardiovascular Cardiovascular exam: Present normal rate and rhythm; Absent JVD GI/Abdominal GI/Abdominal exam: Present normal bowel sounds and soft; Absent organomegaly or tenderness Extremities Exam Extremities exam: Present full ROM, normal capillary refill and tenderness; Absent normal inspection Additional comments: right hip covered by surgical dressing Neurological Exam Neurological exam: Present alert, CN II-XII intact and oriented X3; Absent motor sensory deficit Psychiatric Psychiatric exam: Present normal affect and normal mood; Absent anxious or depressed Skin Skin exam: Present dry and intact Discharge Data Data Completed and Pending Labs on day of discharge: Labs from last 24 hours 06/26/21 06/26/21 05:19 05:19 WBC 8.6 RBC 3.43 L Hgb 10.8 L Hct 33.1 L MCV 96.5 MCH 31.5 MCHC 32.6 RDW 13.2 Plt Count 178 MPV 11.3 H Neut % (Auto) 57.9 Lymph % (Auto) 31.1 [place] % (Auto) 8.4 Eos % (Auto) 2.2 Baso % (Auto) 0.4 Lymph # (Auto) 2.66 [place] # (Auto) 0.72 Eos # (Auto) 0.19 Baso # (Auto) 0.03 Absolute Neutrophils 4.95 Sodium 137 Potassium 3.7 Chloride 101 Carbon Dioxide 27 Anion Gap 9.0 BUN 24 H Creatinine 1.1 GFR Calculation 47 Glucose 102 Uric Acid 5.6 Calcium 8.9 Phosphorus 3.5 Magnesium 2.0 Total Bilirubin 0.6 Direct Bilirubin < 0.2 GGT 13 AST 27 ALT < 5 Alkaline Phosphatase 52 Lactate Dehydrogenase 186 Total Protein 5.4 L Albumin 3.2 Globulin 2.2 Albumin/Globulin Ratio 1.5 Triglycerides 140 Discharge Plan Patient/Caregiver Discharge Instructions Activity: ambulate only with your walker Diet: Consistent Carbohydrate Activity Restrictions/Additional Instructions: --weight bearing as tolerated with walker on your right lower extremity --OK to shower with the dressing in place. If water gets under the dressing, remove and place dry dressing. Stop getting the dressing wet at that point until your follow up with orthopedics --Ice the hip for 20-30 minutes every 3-4 hours to help decrease the pain. Prescriptions: New Eliquis 5 mg Tablet 2.5 mg PO BID Qty: 66 0RF docusate sodium 100 mg Capsule 100 mg PO BID Qty: 60 0RF methocarbamol 500 mg Tablet 500 mg PO Q6HP PRN (Reason: Muscle Spasm) Qty: 20 0RF acetaminophen 500 mg Tablet 1,000 mg PO Q8 Qty: 90 0RF oxycodone 5 mg Tablet 5 - 10 mg PO Q4-6HP PRN (Reason: Per Pain Protocol) Qty: 50 0RF oxycodone 5 mg Tablet 5 mg PO Q4H MDD 8 PRN (Reason: Pain) Qty: 30 0RF Continued celecoxib [Celebrex] 200 mg capsule 200 mg PO DAILY 0RF atorvastatin [Lipitor] 10 mg tablet 10 mg PO DAILY 0RF metoprolol succinate 200 mg Tablet Extended Release 24 Hr 200 mg PO QDAY 0RF amlodipine 10 mg Tablet 10 mg PO QDAY 0RF hydrochlorothiazide 12.5 mg capsule 12.5 mg PO DAILY 0RF omeprazole 20 mg capsule,delayed release(DR/EC) 20 mg PO DAILY 0RF furosemide [Lasix] 20 mg tablet 20 mg PO DAILY 0RF sertraline [Zoloft] 50 mg tablet 50 mg PO DAILY 0RF donepezil [Aricept] 23 mg tablet 23 mg PO HS 0RF potassium chloride 20 mEq Tablet Extended Release 20 meq PO QDAY 0RF glipizide [Glucotrol] 10 mg tablet 10 mg PO BID 0RF Other Ambulatory Orders: Physical Therapy at Discharge - General (Routine) Location: None Selected Ordered By: Miranda Ramesh Toilet Riser Discharge Order (ONCE) Location: None Selected Ordered By: Miranda Ramesh Walker (ONCE) Location: None Selected Ordered By: Miranda Ramesh Wheelchair (ONCE) Location: None Selected Ordered By: Sterling Brice Follow Up Plan Follow up with: Miranda Ramesh MD [Physician] - Jesus Foss MD [Primary Care Provider] - Patient Disposition: Home, Self-Care Rehab Potential: Good I certify that the patient requires SNF services: No Overall status at discharge: patient is not back to baseline Discharge Orders: Discharge Order (Routine); Ordered 06/26/21 Ordered By: Sterling Brice QUALITY VTE Deep Vein Thrombosis/Pulmonary Embolism Present on Admission: No
--- NOTE | 2021-06-28 11:11 | Operative Note ---
DATE OF OPERATION: 06/23/2021 PREOPERATIVE DIAGNOSIS: Right basicervical femoral neck fracture. POSTOPERATIVE DIAGNOSIS: Right basicervical femoral neck fracture. PROCEDURE: Operative fixation with cephalomedullary device for right basicervical neck fracture. SURGEON: Miranda Ramesh M.D. BAND SAW OPERATOR CAKE CUTTING: None. ANESTHESIA: General. INTRAVENOUS FLUIDS: 1400 mL of lactated Ringer's. ESTIMATED BLOOD LOSS: 150 mL. ANTIBIOTICS: 2 grams Ancef. INTRAOPERATIVE COMPLICATIONS: None apparent. PATHOLOGY/LAB: None. IMPLANTS: A short gamma nail with a 90 mm lag screw and a 32.5 distal interlocking screw with set screw placed. INDICATIONS FOR PROCEDURE: The patient is an 81-year-old female who had a ground level fall from tripping over her dog earlier this evening, which resulted in a basicervical neck fracture, displaced. I discussed diagnosis with her and family. I discussed treatment options including operative treatment and my recommendation for operative treatment given that this will improve her mechanical alignment and overall stability of the fracture to improve her overall function and allow her to be immediate weightbearing. I discussed risks of surgery including infection, bleeding, failure, nonunion, malunion and mal reduction. She does understand and she wants to proceed with surgery. DESCRIPTION OF PROCEDURE: Patient was met in the preoperative holding area where site was verified and marked with the patient's input. She was brought to the operating room where she underwent successful anesthesia via LMA. She was placed on the Excel table with well-padded perineal post. The right lower extremity was placed into a boot. The left lower extremity was placed into a frogleg position out of the way. Radiographs were taken of the right hip and the fracture was reduced with inline traction, slight rotation on both AP and lateral and appeared to be essentially anatomic in overall alignment. At this point, the right hip was then prepped and draped in the usual sterile fashion after wiping down with chlorhexidine wipes. Surgical timeout was performed to verify patient's identity, correct procedure being performed, and correct extremity being operated on. Everybody was in agreement. A small incision was made approximately 2 fingerbreadths proximal to the greater trochanteric tip. It was palpated and a small incision was made. A guidewire was placed into the greater trochanter on the AP and then the central portion of the lateral. The guidewire was then placed, an intramedullary device and we verified both on AP and lateral. Incision was enlarged and triple sleeve skin protector was placed and the opening reamer was utilized to gain access into the canal. Over this guide pin, the nail was placed without reaming so that the lag screw would be in a central position, both on AP and lateral at the femoral neck. Once this was placed utilizing the guide system we placed our guide pin in center-center head position on AP and lateral. Verifying this, it did have a bit of apex anterior deformity. This was reduced with direct manual force pressure posteriorly while placing the guidewire. This was then measured, overdrilled with a reaming type drill and screw was placed. Ensured that was subchondral on multiple views and the fracture remained reduced through this process. The set screw was placed and backed off a 1/4 turn. The distal interlocking screw was then placed using the guide system. The guide was then removed from the nail. Final radiographs were taken, both AP and lateral of the hip as well as her distal interlock screw. I was happy with her overall fixation. The leg was then cleaned and dried. The proximal deep incision was closed with 0 Vicryl for the fascia, the subcutaneous tissue with 3-0 Vicryl, and skin closed with samanta. The two other additional holes were closed with subcutaneous suture with 3-0 Vicryl and samanta. The leg was then cleaned and dried. We placed a silver dressing. The patient awoke from anesthesia and transferred to PACU in stable condition. POSTOPERATIVE PLAN: The patient will be admitted back to the floor for postoperative recovery. She will be weightbearing as tolerated. DLW:fay Job ID: [id number] Doc ID: [id number] Miranda [facility]amesh MD [facility]
== END 2021-06-26 12:00 | disposition home or self-care (01) | DRG 482 ==
LOC: ED 16:53 → SUR 19:20 → MEDSUR 21:42
PROVIDERS: ADMIT Orthopaedic Surgery; ATTEND Internal Medicine